=== PATIENT | female | born 1965 | race Caucasian/White ===

== ENCOUNTER 2022-07-28 10:48 | Inpatient (IN) ==
[2022-07-28 12:06] LABS: Bilirubin,Urine Negative (Negative); Blood,Urine Negative (Negative); Clarity,Urine Clear (Clear); Color,Urine Colorless (Yellow); Glucose,Urine (UA) Normal (Normal); Ketones,Urine Negative (Negative); Leukocyte Esterase,Urine Negative (Negative); Nitrite,Urine Negative (Negative); Protein,Urine Negative (Neg-Trace); Specific Gravity,Urine 1.009 (1.010-1.025); Urobilinogen,Urine Normal (Normal)
[2022-07-28 13:10] LABS: Amphetamine Screen,Urine Negative ng/mL (Cutoff=1000); Barbiturate Screen,Urine Negative ng/mL (Cutoff=200); Benzodiazepines Screen,Urine Negative ng/mL (Cutoff=200); Cannabinoid Screen,Urine Positive ng/mL (Cutoff = 50); Cocaine Screen,Urine Negative ng/mL (Cutoff= 300); Opiate Screen,Urine Negative ng/mL (Cutoff=300); Phencyclidine Screen,Urine Negative ng/mL (Cutoff=25)
[2022-07-28] MEDS ORDERED: Ziprasidone 20 MG, Closed System Device IM Kit 1 EACH in Water for inj. (sterile) 1 ML IM ONE (16:07)
[2022-07-28] MEDS ORDERED: Ziprasidone 20 MG/VIAL VIAL IM ONE (16:10)
[2022-07-28] MEDS ORDERED: Water for inj. (sterile) 10 ML ONE (16:10)
[2022-07-28] MEDS ORDERED: Haloperidol Lactate 5 MG/ML VIAL ONE (21:19)
[2022-07-28] MEDS ORDERED: *HR* LORazepam 2 MG/ML VIAL ONE (21:20)
[2022-07-28 22:21] LABS: Influenza A PCR Negative (Negative); Influenza B PCR Negative (Negative); Resp. Syncytial Virus PCR Negative (Negative); SARS-CoV-2 by PCR (In House) Negative (Negative)
[2022-07-28] MEDS ORDERED: *HR* LORazepam 2 MG/ML VIAL IM ONE (22:22)
[2022-07-28] MEDS ORDERED: Haloperidol Lactate 5 MG/ML VIAL IM ONE (22:22)
[2022-07-29] MEDS ORDERED: MOM Conc 10 ML UD.LIQ PO PRN (01:01)
[2022-07-29] MEDS ORDERED: *HR* LORazepam 1 MG TABLET PO PRN (01:01)
[2022-07-29] MEDS ORDERED: Haloperidol Lactate 5 MG/ML VIAL IM PRN (01:01)
[2022-07-29] MEDS ORDERED: *HR* LORazepam 2 MG/ML VIAL IM PRN (01:01)
[2022-07-29] MEDS ORDERED: haloperidoL 5 MG TABLET PO PRN (01:01)
[2022-07-29] MEDS ORDERED: Ziprasidone 20 MG, Closed System Device IM Kit 1 EACH in Water for inj. (sterile) 1 ML IM PRN (10:13)
[2022-07-29] MEDS ORDERED: *HR* LORazepam 0.5 MG TABLET PO PRN (12:11)
[2022-07-30] MEDS: traZODone 50 MG TABLET PO PRN ×2 (00:09→20:38)
[2022-07-30] MEDS: Acetaminophen 325 MG TABLET PO PRN (06:50)
[2022-07-30] MEDS: Ascorbic Acid 500 MG TABLET PO SCH (08:57)
[2022-07-30] MEDS: *HR* LORazepam 0.5 MG TABLET PO SCH ×3 (11:44→23:01)
[2022-07-31] MEDS: hydrOXYzine pamoate 25 MG CAPSULE PO PRN ×3 (01:43→20:44)
[2022-07-31] MEDS: *HR* LORazepam 0.5 MG TABLET PO SCH ×3 (08:35→20:44)
[2022-07-31] MEDS: Ascorbic Acid 500 MG TABLET PO SCH (08:35)
[2022-07-31] MEDS: Acetaminophen 325 MG TABLET PO PRN (15:42)
[2022-07-31] MEDS: OLANZapine 5 MG TAB.RAPDIS PO SCH (17:41)
[2022-07-31] MEDS: traZODone 50 MG TABLET PO PRN (20:44)
[2022-08-01] MEDS: Acetaminophen 325 MG TABLET PO PRN ×2 (02:57→23:32)
[2022-08-01] MEDS: Ascorbic Acid 500 MG TABLET PO SCH (08:56)
[2022-08-01] MEDS: *HR* LORazepam 0.5 MG TABLET PO SCH ×3 (08:56→20:20)
[2022-08-01] MEDS: OLANZapine 5 MG TAB.RAPDIS PO SCH (18:29)
[2022-08-01] MEDS: traZODone 50 MG TABLET PO PRN (20:20)
[2022-08-02] MEDS: hydrOXYzine pamoate 25 MG CAPSULE PO PRN ×2 (01:06→12:07)
[2022-08-02] MEDS: Mag Hydrox/Al Hydrox/Simeth 30 ML UDC PO PRN (01:52)
[2022-08-02] MEDS ORDERED: *HR* LORazepam 1 MG TABLET PO PRN (03:53)
[2022-08-02] MEDS: haloperidoL 5 MG TABLET PO PRN (03:57)
[2022-08-02] MEDS: *HR* LORazepam 0.5 MG TABLET PO SCH ×3 (09:36→20:41)
[2022-08-02] MEDS: Ascorbic Acid 500 MG TABLET PO SCH (09:36)
[2022-08-02] MEDS: OLANZapine 5 MG TAB.RAPDIS PO SCH (18:17)
[2022-08-03] MEDS: traZODone 50 MG TABLET PO PRN ×2 (00:09→20:40)
[2022-08-03] MEDS: hydrOXYzine pamoate 25 MG CAPSULE PO PRN ×2 (00:09→20:40)
[2022-08-03] MEDS: Acetaminophen 325 MG TABLET PO PRN (02:03)
[2022-08-03] MEDS: Ascorbic Acid 500 MG TABLET PO SCH (08:15)
[2022-08-03] MEDS: *HR* LORazepam 0.5 MG TABLET PO SCH ×3 (08:16→20:40)
[2022-08-03] MEDS: OLANZapine 5 MG TAB.RAPDIS PO SCH (17:26)
[2022-08-03] MEDS: rOPINIRole 0.25 MG TABLET PO SCH (20:40)
[2022-08-04] MEDS: haloperidoL 5 MG TABLET PO PRN (00:50)
[2022-08-04] MEDS: Mag Hydrox/Al Hydrox/Simeth 30 ML UDC PO PRN ×3 (02:53→18:51)
[2022-08-04] MEDS: Ascorbic Acid 500 MG TABLET PO SCH (08:26)
[2022-08-04] MEDS: *HR* LORazepam 0.5 MG TABLET PO SCH ×3 (08:26→20:39)
[2022-08-04] MEDS: Acetaminophen 325 MG TABLET PO PRN ×2 (09:12→22:38)
[2022-08-04] MEDS: hydrOXYzine pamoate 25 MG CAPSULE PO PRN ×2 (14:12→22:38)
[2022-08-04] MEDS: OLANZapine 5 MG TAB.RAPDIS PO SCH (18:49)
[2022-08-04] MEDS: rOPINIRole 0.25 MG TABLET PO SCH (20:40)
[2022-08-04] MEDS: traZODone 50 MG TABLET PO PRN ×2 (20:40→22:38)
[2022-08-05 09:24] VITALS: BP 126/76; PULSE 69; TEMP 97.1; O2SAT 98
[2022-08-05] MEDS: Ascorbic Acid 500 MG TABLET PO SCH (09:32)
[2022-08-05] MEDS: *HR* LORazepam 0.5 MG TABLET PO SCH (09:32)
[2022-08-05] MEDS: hydrOXYzine pamoate 25 MG CAPSULE PO PRN (12:27)
[2022-08-05] MEDS: Mag Hydrox/Al Hydrox/Simeth 30 ML UDC PO PRN (12:52)
== END 2022-08-05 13:08 | disposition home or self-care (01) | DRG 885 ==
LOC: EMEROOARM 10:48 → 1ANU 07-29 00:55
PROVIDERS: ADMIT Psychiatry & Neurology Forensic Psychiatry; ATTEND Psychiatry & Neurology Forensic Psychiatry